=== PATIENT | female | born 1995 | race Caucasian/White ===

== ENCOUNTER → 2018-04-10 | Emergency (ER) | payer OTHER ==
[~2018-04-10] VITALS: Ht 165.1 cm; Wt 66.0 kg
[~2018-04-10] MED LIST: KETOROLAC 30 MG/1 ML IM ONE; KETOROLAC 30 MG/1 ML ONE
[2018-04-10 21:31] VITALS: BP 126/82
== END ==
LOC: ED 22:45
DX: M94.0 Chondrocostal junction syndrome [Tietze] (principal); M54.6 Pain in thoracic spine
CPT/HCPCS: 96372; 99283; J1885